=== PATIENT | female | born 1955 | race African-American/Black ===

== ENCOUNTER 2016-12-14 13:17 | Emergency (ER) | payer MEDICAID ==
[~2016-12-14] VITALS: Ht 160 cm; Wt 92.0 kg
[2016-12-14] MEDS ORDERED: MOME13HF2 IH (13:28)
[2016-12-14] MEDS ORDERED: AMLO10TA80 PO (13:28)
[2016-12-14] MEDS ORDERED: GABA-531 PO (13:28)
[2016-12-14] MEDS ORDERED: HYDR25TA PO (13:28)
[2016-12-14] MEDS ORDERED: CYCL5TAB PO (13:28)
[2016-12-14] MEDS ORDERED: SODIUM CHLORIDE 0.9% 1,000 ML IV ONE (14:30)
[2016-12-14 14:56] LABS: BASOPHILS % 0.9 % (0.0-2.0); EOSINOPHILS % 0.3 % (0.0-5.0); HEMATOCRIT. 44.5 % (36.0-48.0); HEMOGLOBIN. 14.7 g/dL (12.0-16.0); LYMPHOCYTES % 32.2 % (20.0-50.0); MEAN CORPUSCULAR HEMOGLOBIN 26.5 pg (28.0-32.0); MEAN CORPUSCULAR VOLUME 80.2 fL (81.0-99.0); MEAN PLATELET VOLUME 8.5 fl (7.4-10.4); MONOCYTES % 9.1 % (2.0-8.0); NEUTROPHILS % 57.5 % (40.0-76.0); PLATELET 261 x1000/uL (130-400); RED BLOOD CELL COUNT 5.55 mill/uL (4.2-5.4); RED CELL DISTRIBUTION WIDTH 13.6 % (11.6-14.6)
[2016-12-14 15:01] LABS: CHLORIDE 94 mEq/L (98-107)
[2016-12-14 15:09] LABS: CARBON DIOXIDE 27 mEq/L (21-32); ETHANOL BLOOD < 10 mg/dL
[2016-12-14 15:12] LABS: CREATINE KINASE 551 IU/L (26-192)
[2016-12-14 15:13] LABS: BETA HYDROXYBUTYRATE 0.1 mMol/L (0.0-0.3); TROPONIN I < 0.02 ng/mL (0.00-0.04)
[2016-12-14] MEDS ORDERED: KCL 20MEQ/100ML PREMIX 100 ML IV ONE (15:30)
[2016-12-14] MEDS ORDERED: INSULIN REGULAR (HUMULIN R) 300UNITS/3ML SUBCUT ONE (15:30)
[2016-12-14] MEDS ORDERED: POTASSIUM CHLORIDE 20MEQ TABLET SR PO ONE (15:30)
[2016-12-14 16:45] LABS: CLARITY URINE CLEAR (CLEAR); COLOR URINE YELLOW (YELLOW); GLUCOSE URINE 3+ (NEGATIVE); KETONES URINE NEGATIVE (NEGATIVE); LEUKOCYTE ESTERASE URINE NEGATIVE (NEGATIVE); NITRITE URINE NEGATIVE (NEGATIVE); OCCULT BLOOD URINE NEGATIVE (NEGATIVE); PH URINE 5.5 (4.5-8.0); PROTEIN URINE NEGATIVE (NEGATIVE); SPECIFIC GRAVITY URINE 1.034 (1.005-1.030); UROBILINOGEN URINE 0.2 E.U./dL (0.2-1.0)
[2016-12-14 17:00] LABS: *AMPHETAMINES SCREEN URINE NEGATIVE (NEGATIVE); *BARBITURATES SCREEN URINE NEGATIVE (NEGATIVE); *BENZODIAZEPINES SCREEN URINE NEGATIVE (NEGATIVE); *COCAINE SCREEN URINE NEGATIVE (NEGATIVE); CANNABINOID URINE SCREEN NEGATIVE (NEGATIVE); METHADONE URINE SCREEN NEGATIVE (NEGATIVE); OPIATES URINE SCREEN NEGATIVE (NEGATIVE); PHENCYCLIDINE URINE SCREEN NEGATIVE (NEGATIVE)
[2016-12-14] MEDS: INSULIN REGULAR (HUMULIN R) 300UNITS/3ML IV ONE ×2 (17:16→18:03)
[2016-12-14 20:48] VITALS: BP 120/90
== END 2016-12-14 21:20 | disposition home or self-care (01) ==
LOC: ER 13:37 → CANBEDREQ 18:40 → ER 21:20
DX: E11.9 Type 2 diabetes mellitus without complications (principal); E86.0 Dehydration; I10 Essential (primary) hypertension; R06.02 Shortness of breath; F17.290 Nicotine dependence, other tobacco product, uncomplicated
CPT/HCPCS: 36415; 71010; 80053; 80305; 81001; 82010; 82550; 82962; 83880; 84443; 84484; 85025; 85379; 93005; 96361; 96365; 96372; 96375; 99285; 99406; G0482; J1815; J3480; Z7610; J7030

== ENCOUNTER 2018-12-11 11:43 | Emergency (ER) | payer MEDICAID ==
[~2018-12-11] VITALS: Ht 160 cm; Wt 99.0 kg
[~2018-12-11 11:43] MED LIST: AMLO10TA80 PO; CYCL5TAB PO; GABA-531 PO; HYDR25TA PO; MOME13HF2 IH
[2018-12-11] MEDS ORDERED: SODIUM CHLORIDE 0.9% 1,000 ML IV ONE (13:04)
[2018-12-11 13:19] LABS: BASOPHILS % 1.3 % (0.0-2.0); EOSINOPHILS % 1.2 % (0.0-5.0); HEMATOCRIT. 43.2 % (36.0-48.0); HEMOGLOBIN. 14.4 g/dL (12.0-16.0); LYMPHOCYTES % 33.6 % (20.0-50.0); MEAN CORPUSCULAR HEMOGLOBIN 27.4 pg (28.0-32.0); MEAN PLATELET VOLUME 7.8 fl (7.4-10.4); MONOCYTES % 7.7 % (2.0-8.0); NEUTROPHILS % 56.2 % (40.0-76.0); PLATELET 271 x1000/uL (130-400); RED BLOOD CELL COUNT 5.27 mill/uL (4.2-5.4); RED CELL DISTRIBUTION WIDTH 16.7 % (11.6-14.6)
[2018-12-11 13:26] LABS: CHLORIDE 113 mEq/L (98-107)
[2018-12-11] MEDS ORDERED: IOHEXOL-300 100 ML BOTTLE ONE (14:37)
[2018-12-11 17:45] VITALS: BP 144/93
== END 2018-12-11 18:45 | disposition home or self-care (01) ==
LOC: ER 11:43
DX: R22.0 Localized swelling, mass and lump, head (principal); I10 Essential (primary) hypertension; Z79.899 Other long term (current) drug therapy
CPT/HCPCS: 36415; 70487; 80048; 85025; 99284; J7030; Q9967

== ENCOUNTER 2019-05-03 09:37 | Emergency (ER) | payer MEDICAID ==
[~2019-05-03] VITALS: Ht 162.6 cm; Wt 90.0 kg
[2019-05-03 10:17] VITALS: BP 156/70
== END 2019-05-03 11:51 | disposition home or self-care (01) ==
LOC: ER 09:37
DX: J06.9 Acute upper respiratory infection, unspecified (principal)
CPT/HCPCS: 71045; 99283